=== PATIENT | male | born 1990 | race Caucasian/White ===

== ENCOUNTER 2021-03-26 15:17 | Emergency (ER) | payer SELFPAY ==
[~2021-03-26] VITALS: Ht 177.8 cm; Wt 72.0 kg
[2021-03-26 16:25] LABS: BASOPHILS % 0.3 % (0.0-2.0); HEMATOCRIT. 41.3 % (42.0-52.0); HEMOGLOBIN. 13.7 g/dL (14.0-18.0); MEAN CORPUSCULAR HEMOGLOBIN 26.1 pg (28.0-32.0); MEAN CORPUSCULAR VOLUME 78.8 fL (80.0-94.0); MEAN PLATELET VOLUME 9.1 fl (7.4-10.4); MONOCYTES % 9.2 % (2.0-8.0); NEUTROPHILS % 75.5 % (40.0-76.0); PLATELET 230 x1000/uL (130-400); RED BLOOD CELL COUNT 5.25 mill/uL (4.7-6.1); RED CELL DISTRIBUTION WIDTH 14.3 % (11.6-14.6)
[2021-03-26] MEDS ORDERED: DIPHENHYDRAMINE 50MG/ML VIAL IV ONE ×2 (16:30→23:30)
[2021-03-26] MEDS ORDERED: HALOPERIDOL LACTATE 5MG/ML VIAL IM ONE ×2 (16:30→23:30)
[2021-03-26] MEDS ORDERED: LORAZEPAM 2MG/ML CPJ IV ONE ×2 (16:30→23:30)
[2021-03-26 16:35] LABS: CHLORIDE 109 mEq/L (98-107)
[2021-03-26 16:40] LABS: ETHANOL BLOOD < 10 mg/dL
[2021-03-26 21:36] LABS: CLARITY URINE CLEAR (CLEAR); COLOR URINE YELLOW (YELLOW); KETONES URINE 3+ (NEGATIVE); LEUKOCYTE ESTERASE URINE NEGATIVE (NEGATIVE); NITRITE URINE NEGATIVE (NEGATIVE); OCCULT BLOOD URINE NEGATIVE (NEGATIVE); PROTEIN URINE NEGATIVE (NEGATIVE); SPECIFIC GRAVITY URINE 1.023 (1.005-1.030)
[2021-03-26 21:39] LABS: *AMPHETAMINES SCREEN URINE NEGATIVE (NEGATIVE); *BARBITURATES SCREEN URINE NEGATIVE (NEGATIVE); *BENZODIAZEPINES SCREEN URINE NEGATIVE (NEGATIVE); *COCAINE SCREEN URINE NEGATIVE (NEGATIVE)
[2021-03-26 21:40] LABS: CANNABINOID URINE SCREEN PRESUMTIVE POSITIVE (NEGATIVE); METHADONE URINE SCREEN NEGATIVE (NEGATIVE); OPIATES URINE SCREEN NEGATIVE (NEGATIVE); PHENCYCLIDINE URINE SCREEN NEGATIVE (NEGATIVE)
[2021-03-27] MEDS ORDERED: LORAZEPAM 2MG/ML CPJ IV PRN (04:00)
[2021-03-27] MEDS ORDERED: HALOPERIDOL LACTATE 5MG/ML VIAL IM NR (04:15)
[2021-03-27] MEDS ORDERED: WATER IV NR (05:00)
[2021-03-27] MEDS ORDERED: BENZTROPINE MESYLATE 1MG/1ML 2ML AMP IM NR (05:00)
[2021-03-27] MEDS ORDERED: DEXT 5% IV NR (05:00)
[2021-03-27] MEDS ORDERED: VALPROATE SODIUM IV NR (05:00)
[2021-03-27] MEDS ORDERED: SODIUM CHLORIDE 0.9% 1,000 ML IV ONE ×3 (07:15→17:15)
[2021-03-27] MEDS ORDERED: LORAZEPAM 2MG/ML CPJ IV ONE ×2 (12:15→13:15)
[2021-03-27] MEDS ORDERED: HALOPERIDOL LACTATE 5MG/ML VIAL IM SCH (13:15)
[2021-03-27] MEDS: BENZTROPINE MESYLATE 1MG/1ML 2ML AMP IM SCH ×2 (13:51→17:42)
[2021-03-27 17:03] LABS: CREATINE KINASE 1299 IU/L (39-308)
[2021-03-27] MEDS: HALOPERIDOL LACTATE 5MG/ML VIAL IM SCH (21:32)
[2021-03-28] MEDS ORDERED: LORAZEPAM 2MG/ML CPJ IM PRN
[2021-03-28] MEDS ORDERED: HALOPERIDOL LACTATE 5MG/ML VIAL IM ONE (02:45)
[2021-03-28] MEDS: VALPROATE SODIUM 250MG/5ML UDC PO SCH ×2 (06:21→14:00)
[2021-03-28] MEDS: BENZTROPINE MESYLATE 1MG/1ML 2ML AMP IM SCH ×2 (09:30→17:00)
[2021-03-28] MEDS: HALOPERIDOL LACTATE 5MG/ML VIAL IM SCH ×2 (09:30→17:00)
[2021-03-28] MEDS ORDERED: LORAZEPAM 2MG/ML CPJ IM ONE (20:00)
[2021-03-29] MEDS: VALPROATE SODIUM 250MG/5ML UDC PO SCH ×4 (00:36→15:32)
[2021-03-29] MEDS ORDERED: LORAZEPAM 2MG/ML CPJ IM PRN (03:00)
[2021-03-29] MEDS ORDERED: DIPHENHYDRAMINE 25MG CAPSULE PO ONE (04:30)
[2021-03-29] MEDS ORDERED: LORAZEPAM 2MG/ML CPJ IV ONE (04:30)
[2021-03-29] MEDS ORDERED: LORAZEPAM 2MG/ML CPJ IM ONE ×2 (04:45→11:15)
[2021-03-29] MEDS: BENZTROPINE MESYLATE 1MG/1ML 2ML AMP IM SCH (09:00)
[2021-03-29] MEDS: HALOPERIDOL LACTATE 5MG/ML VIAL IM SCH (09:00)
[2021-03-29 16:25] VITALS: BP 130/85
== END 2021-03-29 16:53 ==
LOC: ER 16:05
DX: F31.9 Bipolar disorder, unspecified (principal); R45.851 Suicidal ideations; F20.9 Schizophrenia, unspecified; F12.10 Cannabis abuse, uncomplicated; Z20.822 Contact with and (suspected) exposure to COVID-19
CPT/HCPCS: 36415; 70450; 80053; 80305; 80307; 80320; 80329; 81003; 85025; 96361; 96365; 96372; 96375; 96376; 99285; J0515; J1200; J1630; J2060; Q0163; U0003; G0480